=== PATIENT | female | born 1960 | race Caucasian/White ===

== ENCOUNTER 2020-10-07 18:16 | Emergency (ER) | payer MEDICARE, MEDICAID, SELFPAY ==
--- NOTE | 2020-10-07 18:35 | ED.GENADUL_ITS ---
Discharge Plan Disposition Patient Disposition: HOME Condition: Stable Discharge Details Clinical Impression: Back pain, Urinary incontinence Primary Care Provider: Arslan Cruz ED Provider: Cami Parsons Home Meds and New Rx's Prescriptions: Continued Gelina RF: 0 lamotrigine 25 mg Tablet RF: 0 duloxetine 20 mg Capsule, Delayed Rel Sprinkle 20 mg PO BID RF: 0 gabapentin 300 mg Tablet 300 mg PO DAILY RF: 0 atorvastatin [Lipitor] 20 mg Tablet 20 mg RF: 0 Discharge Instructions Instructions: Back Pain (ED) Additional Instructions: Your labs, imaging and exam are reassuring here today. Please encouraged rest, stretching, physical therapy exercises, heat or ice. You may try topical options such as Lidoderm patches. May continue with Tylenol as needed for discomfort. Please continue with your gabapentin. Please call your neurology team on Saturday to schedule follow-up appointment. They are expecting your call. If you develop fever/chills, increased pain, weakness or other new/worsening symptoms please seek care urgently once again. Referrals: Arslan Cruz [Primary Care Provider] - Jaylon Sunshine [ NON-[facility] STAFF PHYSICIAN] - Medical Decision Making Patient is a pleasant 60-year-old female with past medical history pertinent for relapsing remitting multiple sclerosis presenting today with chief complaint of low back pain. Patient reports that she has chronic upper and lower back pain. She associates this with her MS as well as known degenerative disc disease. Reports that she did have increased sciatica pain. The began yesterday. States that she did experience a jolt of pain after which she was incontinent of urine. She denies any incontinent baseline. No change in bowel habits. Since that time, she states that she is having difficulty getting to the restroom in a timely manner and has been having small amounts of urine leak out. States that when she is voiding is a large amount. Denies any trauma. No recent change in medications. States she been taking gabapentin without relief of her discomfort. Denies any fevers or chills. States that her sciatica pain has been worse historically but that the incontinence is new for her. Has not had any difficulty with ambulation. Prior to arrival here, patient was evaluated at local urgent care. The provider there did contact us. She was advised to go there for evaluation potential UTI. Per their report there is no abnormalities on urinalysis. However, with the incontinence and low back pain they were concerned for potential cauda equina and advised that she be evaluated here. On exam, patient appears nontoxic. She does appear anxious and uncomfortable. No neurologic deficit was noted on exam. Patient does have good rectal tone and rectal sensation. She has 2+ distal pulses in all extremities. She has intact reflexes equal bilaterally. Babinski normal bilaterally. She does have midline lumbar wall pain with palpation slightly diffusely about the lumbar back. No rash abnormality is appreciated on exam. No step-off. No evidence of trauma. Patient also exquisitely tender in the midline of the lower abdomen. No pulsatile masses appreciated. States the abdominal pain began around the same time as the back pain. Was not aware initially linking the 2. Differential at this time is quite broad. But her exam is reassuring, cauda equina is on the differential. However, more concern at this time for other pathologies such as AAA based on the patient's abdominal pain radiating to the back. Also considered other pathologies such as diverticulitis, pancreatitis, appendicitis, acute cystitis. She does not have risk factors for spinal infection. May also be MS flair, muscular vs. other. Plan to obtain baseline labs and CTA of the abdomen and pelvis as well as recons of the spine. Patient does not like using narcotics. We will give her IV acetaminophen to help with discomfort. Patient is followed at [facility] for her MS. Last had imaging completed on 10/24/2019. At that time, MRI showed no enhancing lesions in the brain or cervical cord. Similar appearance of the nonenhancing plaques of the muscle sclerosis in the brain. Possible new small lesion in the cervical cord 7. Resolution of enhancement and edema of cord dorsal cord lesion C5-6. The patient also had MRI of thoracic spine dated 09/09/2017. At that time several thoracic cord lesions consistent with demyelination. There is no abnormal enhancement. There was noted to be a small disc herniation at T1-2 to mildly indenting the ventral thecal sac. I am unable to find any imaging of the patient's lumbar spine. Labs reviewed. No sigfnciant abnormality. FINDINGS: Lungs: There is a right lower lobe lung nodule measuring up to 1 cm series 5, image 3 and series 9, image 40. Aorta: No aortic aneurysm. No aortic dissection. Celiac trunk and mesenteric arteries: No occlusion or significant stenosis. Renal arteries: No occlusion or significant stenosis. Right iliac arteries: No occlusion or significant stenosis. Left iliac arteries: No occlusion or significant stenosis. Liver: No mass. Gallbladder and bile ducts: Gallbladder partially contracted. Pancreas: Unremarkable. No mass. No ductal dilation. Spleen: Heterogeneous splenic enhancement noted, presumed artifact of dynamic bolus. Adrenal glands: Unremarkable. No mass. Kidneys and ureters: Unremarkable. No solid mass. No hydronephrosis. Stomach and bowel: Moderate fecal retention pattern. Appendix: No evidence of appendicitis. Intraperitoneal space: Unremarkable. No free air. No significant fluid collection. Lymph nodes: Unremarkable. No enlarged lymph nodes. Urinary bladder: Unremarkable. No mass. Reproductive: Unremarkable as visualized. Bones/joints: No acute fracture. No dislocation. Soft tissues: Unremarkable. IMPRESSION: 1. Follow-up pulmonary nodule. 2. No acute abnormality seen to account for symptoms. FINDINGS: Vertebrae: No acute fracture. Normal alignment. Discs/Spinal canal/Neural foramina: There is mild broad-based disc bulge at the L1-L2 and L2-L3 level. At the L2-L3 level there is bilateral foraminal narrowing, mild to moderate. There is broad-based disc bulge at L3-L4 with bilateral mild foraminal narrowing. Mild disc bulge noted L4-L5 with minimal bilateral foraminal compromise, left worse than right. Soft tissues: Unremarkable. IMPRESSION: Mild spondylosis with foraminal compromise. No evidence for stenosis. Patient appears more comfortable after Tylenol. She states her uper back pain, which is chronic, is worse. Will give Lidoderm patch. Patient urinated after CT, post void residual 58cc. Plan to consult with [facility] neurology to discuss case further. Dr. Santana with neurology. We discussed exam. She did not feel that further evaluation for cauda equina is needed at this time with the patients current exam and imaging. She felt that f/u in the clinic would be approrpiate. I discussed these recommendations with the patient. She is feeling significantly better after Lidoderm patch. Patient in agreement with follow-up with neurology next week. She will continue with physical therapy ludivina mmendations. Gentle stretching. We discussed [id number] and home remedies to help with symptomatic management. Return precautions were discussed. Advised f/u with PCP as well. All the questions and concerns were addressed and he is agreement this plan. HPI General Mode of arrival: ambulatory . Date/Time Provider Initiated Documentation: 10/07/20 18:35 . Limitations to Documentation: no limitations . Information obtained by: patient, RN/MD (contacted by urgent care PA prior to patients arrival), RN notes reviewed and old records reviewed ([facility] record) . History of Present Illness 60 year old F presents to the emergency department with the chief complaint of back pain, described as severe, with intensity rated at 8. Quality is described as aching, and is localized to the back. Patient reports no radiation. Patient started experiencing this day(s) and it has been constant. Immobilization improves symptom(s), Movement worsens symptoms . Patient notes other (urinary incontinence); denies chest pain, cough, fever/chills, loss of appetite, nausea/vomiting, rash, shortness of breath and weakness. Patient did receive the following treatments prior to arrival, none Related Data Home Medications Medication Instructions Recorded Confirmed Gelina 10/07/20 atorvastatin [Lipitor] 20 mg 10/07/20 duloxetine 20 mg PO BID 10/07/20 10/07/20 gabapentin 300 mg PO DAILY 10/07/20 10/07/20 lamotrigine 10/07/20 Allergies Allergy/AdvReac Type Severity Reaction Status Date / Time betamethasone [From Beta-1] Allergy Unverified 10/07/20 19:09 NSAIDS (Non-Steroidal Allergy Unverified 10/07/20 19:08 Anti-Inflamma Review of Systems Constitutional Constitutional: Reports as per HPI, Denies chills, Denies fatigue, Denies fever(s), Denies frequent falls and Denies headache(s) Eyes Eyes: Denies change in vision ENT Ears, Nose, Mouth, and Throat: Denies headache(s) Cardiovascular Cardiovascular: Denies chest pain, Denies dyspnea and Denies dyspnea on exertion Respiratory Respiratory: Denies cough, Denies dyspnea and Denies dyspnea on exertion Gastrointestinal Gastrointestinal: Denies abdominal pain, Denies change in bowel habits and Denies fecal incontinence Genitourinary Genitourinary: Reports as per HPI, Denies dysuria, Reports urinary incontinence, Denies urinary hesitancy and Reports urinary urgency Musculoskeletal Musculoskeletal: Reports as per HPI, Reports back pain, Denies muscle weakness, Denies numbness, Denies radiating pain into limb, Reports stiffness and Denies tingling Integumentary/Breasts Skin/Breast: Reports as per HPI and Denies rash Neurologic Neurologic: Reports as per HPI, Denies frequent falls, Denies headache(s), Denies localized weakness, Denies numbness, Denies radicular pain, Denies sensory deficit, Denies tingling and Denies paresthesias Endocrine Endocrine: Denies fatigue [facility] Social History Smoking/Tobacco Use Status: Never Smoking risk assessment performed?: Yes Alcohol Intake: never Substance use type: marijuana Details: medical card Do you feel safe at home: Yes Do you feel safe in your relationship?: Yes Exam Const General: cooperative, healthy appearing, uncomfortable, no acute distress, well developed and well groomed Nutritional Appearance: average body habitus and well nourished Orientation: alert and awake Eyes General: appearance normal, both eyes and all related structures Neck Neck: normal visual inspection, full ROM, no lymphadenopathy and no meningeal signs Resp Effort & Inspection: normal respiratory effort and able to speak in complete sentences Auscultation: clear to auscultation bilaterally, no rales, no rhonchi and no wheezes Cardio Rate: regular rate Rhythm: regular rhythm Heart Sounds: S1 normal and S2 normal GI Inspection: normal to inspection Palpation: soft, no hepatosplenomegaly, no aortic enlargement, not firm, no guarding, no hernias, no pulsatile masses, not rigid, tender (diffuse) and No ascites Percussion: normal to percussion Auscultation: normal bowel sounds Rectal Exam - female: visual inspection normal and normal sphincter tone Back/Spine/Pelvis Back: no CVA tenderness Cervical Spine: normal cervical lordosis, cervical ROM normal, No cervical spasm and No cervical spinal tenderness Thoracic/Lumbar Spine: thoracic and lumbar spine normal to inspection, No mass, paraspinal tenderness (lumbar area, diffuse pain), No thoraco-lumbar spasm, No thoracic spinal tenderness and lumbar spinal tenderness (diffuse) Pelvis: no pain with anterior-posterior compression and no pain with lateral compression Sacroiliac joints: bilaterally nontender Skin General skin exam: no rashes or lesions noted Neuro General: patient alert, patient awake and patient oriented x3 Cranial Nerves: CN's II-XI intact bilaterally Cognition: normal cognition Speech: speech normal Gait: normal gait Motor: muscle tone normal throughout, strength 5/5 throughout, no pronator drift, no movement abnormalities noted and no fasciculations Sensory Exam: no sensory deficits noted (no saddle paresthesias) DTR's: Rt Biceps: 2+, Lt Biceps: 2+, Rt Brachioradialis: 2+, Lt Brachioradialis: 2+, Rt Patellar: 2+, Lt Patellar: 2+, Rt Ankle: 2+ and Lt Ankle: 2+ Plantar Reflexes: Downgoing: bilateral Coordination: [id number] test normal and [id number] test normal Extrem General: normal to inspection, full ROM, capillary refill normal, no joint enlargement, no pedal edema, no calf tenderness and normal gait Psych Appearance: grossly normal and well kempt Mental Status: mental status grossly normal Speech and Movement: speech and movement normal
[2020-10-07 18:44] VITALS: BP 154/66; PULSE 82; RESP 16; TEMP 36.6; O2SAT 99
--- NOTE | 2020-10-07 19:00 | DI.CT_ITS ---
Exam(s) CT ABDOMEN PELVIS CTA EXAM: CT ABDOMEN PELVIS CTA CLINICAL HISTORY: diffuse pain, maximally centrally, radiating to ba. TECHNIQUE: Imaging Protocol: Axial CT angiography was performed with multi-slice acquisition and m ulti-planar and/or 3D reconstructions. CONTRAST MATERIAL: Intravenous: Omnipaque 350 Contrast volume:100 mL Oral: No COMPARISON: No exams were available for comparison FINDINGS: ABDOMEN AND PELVIS: Abdomen: Celiac axis/mesenteric arteries: No evidence of occlusion or significant stenosis. Renal Arteries: No evidence of occlusion or significant stenosis. There is a single renal artery per fusing each kidney. Aorta: No evidence of occlusion or significant stenosis. No aneurysm or dissection. Pelvis: Iliac Arteries: No evidence of occlusion or significant stenosis. Common Femoral Arteries: No evidence of occlusion or significant stenosis. ABDOMEN: Lung bases: There is a 1.2 x 1.1 cm soft tissue mass in the anterior aspect of the right lower lobe. Dependent atelectasis is seen in the lung bases. Liver: Normal density. No enhancing masses are appreciated. Portal, Superior Mesenteric, and Splenic Veins: Unremarkable. Gallbladder and Biliary Tract: No radiodense calculus or dilation. Pancreas: Normal density, no abnormal calcifications or inflammatory process. Spleen: Normal. Adrenals: No masses seen. Kidneys: Normal size, contour and axis. No radiodense stones or obstructive uropathy. No masses seen. Bowel: No obstruction or bowel wall thickening. No evidence of appendicitis. Peritoneal Cavity: No ascites, collection or mesenteric inflammatory response. No free air. Lymph Nodes: Within normal limits. Bones: Within normal limits for the patient's age. Soft Tissues: Unremarkable. PELVIS: Bladder: Symmetric distention, no gross wall thickening. Reproductive Organs: Unremarkable as visualized. Lymph Nodes: Within normal limits. Bones: Within normal limits. IMPRESSION: 1. Normal CT Angiogram of the abdomen and pelvis. 2. 1.2 x 1.1 cm right lower lobe pulmonary nodule. Pulmonary neoplasm should be considered. A follo w-up CT scan of the chest with contrast is recommended for further evaluation. Incidental Findings RADIATION DOSE DELIVERED: Total DLP Total DLP DATA REPOSITORY: All CT scans at this facility are submitted to the National Radiology Data Registry (NRDR) Dose Index Registry (DIR) with the [employer] ([employer]). RADIATION OPTIMIZATION: All CT scans at this facility use at least one of these dose optimization te chniques: automated exposure control; mA and/or kV adjustment per patient size (includes targeted exa ms where dose is matched to clinical indication); or iterative reconstruction.
[2020-10-07 19:27] LABS: Lactate 0.9 mmol/L (0.6-1.4)
[2020-10-07 19:28] LABS: Abs Immature Grans 0.03 10^3/uL (0.0-0.06); Absolute Basophil Count 0.01 10^3/uL (0.0-0.2); Absolute Eosinophil Count 0.09 10^3/uL (0.0-0.7); Absolute Lymphocyte Count 0.21 10^3/uL (1.2-3.4); Absolute Monocyte Count 0.57 10^3/uL (0.1-0.8); Absolute Neutrophil Count 5.61 10^3/uL (1.2-6.7); Basophils % 0.2; Eosinophils % 1.4; HCT 38.1 % (36.0-46.0); HGB 12.6 g/dL (11.2-15.7); Immature Grans % 0.5; Lymphocytes % 3.2; MCHC 33.1 % (32.0-36.0); MCV 93.8 fL (80-95); MPV 9.9 fL (8.0-11.0); Monocytes % 8.7; Nucleated RBC 0 %; Platelet Count 209 10^3/uL (130-400); RBC 4.06 10^6/uL (3.93-5.22); RDW 13.1 % (11.7-14.6); RDW-SD 45.4 fL; WBC 6.52 10^3/uL (4.4-10.8)
[2020-10-07 19:46] LABS: ALT 31 U/L (14-59); AST 19 U/L (15-37); Albumin 3.6 g/dL (3.4-5.0); Alkaline Phosphatase 90 U/L (46-116); Anion Gap 6.8 mmol/L (3-11); BUN 14 mg/dL (7-18); Bilirubin, Total 0.2 mg/dL (0.2-1.0); CO2 30.2 mmol/L (21.0-32.0); CREATININE 0.7 mg/dL (0.55-1.02); Calcium 8.8 mg/dL (8.5-10.1); Chloride 106 mmol/L (98-107); Glucose 97 mg/dL (74-106); Lipase 127 U/L (73-393); Magnesium 2.1 mg/dL (1.8-2.4); Sodium 143 mmol/L (136-145); Total Protein 6.8 g/dL (6.4-8.2)
[2020-10-07] MEDS: ACETAMINOPHEN 1,000 MG/100 ML BTL 400 MG IVPB (19:46)
[2020-10-07 19:47] LABS: Troponin I < 0.05 ng/mL (<0.06)
[2020-10-07] MEDS: Lactated Ringers 1,000 ML 1000 ML IV (20:00)
[2020-10-07] MEDS: Omnipaque 350 MG/ML 100 ML BTL IJ (20:11)
[2020-10-07] MEDS: Normal Saline - Diluent 50 ML VIAL IV (20:12)
--- NOTE | 2020-10-07 20:30 | DI.CT_ITS ---
Exam(s) CT LUMBAR SPINE RECONS EXAM: CT LUMBAR SPINE RECONS CLINICAL HISTORY: recon for back pain with urinary incontinence. TECHNIQUE: Imaging Protocol: Axial computed tomography images with coronal and sagittal reformatted images were created and reviewed COMPARISON: No exams were available for comparison FINDINGS: There are degenerative changes throughout the lumbar spine. There is disc space narrowing and vacuum disc at L5-S1. Endplate osteophytes are present throughout the lumbar spine. There are mild diffus e disc bulges throughout the lumbar spine. There is sparing of the L5-S1 disc space. Degenerative c hanges of the facets are seen at L4-5 and L5-S1. Neural foraminal narrowing is seen bilaterally at L 2-3 through L5-S1. No significant central spinal canal stenosis is seen in the lumbar spine. No acu te fracture or subluxation. IMPRESSION: Multilevel degenerative changes in the lumbar spine. RADIATION DOSE DELIVERED: Total DLP Total DLP DATA REPOSITORY: All CT scans at this facility are submitted to the National Radiology Data Registry (NRDR) Dose Index Registry (DIR) with the [employer] ([employer]). RADIATION OPTIMIZATION: All CT scans at this facility use at least one of these dose optimization te chniques: automated exposure control; mA and/or kV adjustment per patient size (includes targeted exa ms where dose is matched to clinical indication); or iterative reconstruction.
--- NOTE | 2020-10-07 20:43 | DI.VRAD_ITS ---
PROCEDURE INFORMATION: Exam: CT Lumbar Spine With Contrast Exam date and time: 10/07/2020 7:10 PM Age: 60 years old Clinical indication: Patient HX: Urinary incontinence, low back pain, HX of ms; Additional info: These are reconstructions from the cta abdomen and pelvis done at 2.0 mm slice thickness TECHNIQUE: Imaging protocol: Computed tomography images of the lumbar spine with intravenous contrast. Radiation optimization: All CT scans at this facility use at least one of these dose optimization techniques: automated exposure control; mA and/or kV adjustment per patient size (includes targeted exams where dose is matched to clinical indication); or iterative reconstruction. COMPARISON: No relevant prior studies available. FINDINGS: Vertebrae: No acute fracture. Normal alignment. Discs/Spinal canal/Neural foramina: There is mild broad-based disc bulge at the L1-L2 and L2-L3 level. At the L2-L3 level there is bilateral foraminal narrowing, mild to moderate. There is broad-based disc bulge at L3-L4 with bilateral mild foraminal narrowing. Mild disc bulge noted L4-L5 with minimal bilateral foraminal compromise, left worse than right. Soft tissues: Unremarkable. IMPRESSION: Mild spondylosis with foraminal compromise. No evidence for stenosis. Dictated and Authenticated by: Chantel Henderson MD. Ordering:KOBY Almanza MD
--- NOTE | 2020-10-07 20:50 | DI.VRAD_ITS ---
PROCEDURE INFORMATION: Exam: CTA Abdomen and Pelvis With Contrast Exam date and time: 10/07/2020 7:09 PM Age: 60 years old Clinical indication: Other: Diffuse pain; Patient HX: Urinary incontinence, HX of ms TECHNIQUE: Imaging protocol: Computed tomographic angiography of the abdomen and pelvis with contrast material. 3D rendering (Not supervised by radiologist): MIP and/or 3D reconstructed images were created by the technologist. Radiation optimization: All CT scans at this facility use at least one of these dose optimization techniques: automated exposure control; mA and/or kV adjustment per patient size (includes targeted exams where dose is matched to clinical indication); or iterative reconstruction. Contrast material: OMNIPAQUE 350; Contrast volume: 100 ml; Contrast route: INTRAVENOUS (IV); COMPARISON: No relevant prior studies available. FINDINGS: Lungs: There is a right lower lobe lung nodule measuring up to 1 cm series 5, image 3 and series 9, image 40. Aorta: No aortic aneurysm. No aortic dissection. Celiac trunk and mesenteric arteries: No occlusion or significant stenosis. Renal arteries: No occlusion or significant stenosis. Right iliac arteries: No occlusion or significant stenosis. Left iliac arteries: No occlusion or significant stenosis. Liver: No mass. Gallbladder and bile ducts: Gallbladder partially contracted. Pancreas: Unremarkable. No mass. No ductal dilation. Spleen: Heterogeneous splenic enhancement noted, presumed artifact of dynamic bolus. Adrenal glands: Unremarkable. No mass. Kidneys and ureters: Unremarkable. No solid mass. No hydronephrosis. Stomach and bowel: Moderate fecal retention pattern. Appendix: No evidence of appendicitis. Intraperitoneal space: Unremarkable. No free air. No significant fluid collection. Lymph nodes: Unremarkable. No enlarged lymph nodes. Urinary bladder: Unremarkable. No mass. Reproductive: Unremarkable as visualized. Bones/joints: No acute fracture. No dislocation. Soft tissues: Unremarkable. IMPRESSION: 1. Follow-up pulmonary nodule. 2. No acute abnormality seen to account for symptoms. Dictated and Authenticated by: Chantel Henderson MD. Ordering:KOBY Almanza MD
[2020-10-07] MEDS: Lidocaine 5% Patch 1 PATCH TP (21:00)
[2020-10-07 21:05] VITALS: BP 120/64; PULSE 63; RESP 15; O2SAT 98
[2020-10-07 21:46] VITALS: BP 145/73; PULSE 67; RESP 15; O2SAT 97
== END 2020-10-07 21:50 | disposition home or self-care (01) ==
LOC: DI 18:25 → ER 18:34
PROVIDERS: Emergency Provider Physician Assistant; PCP Physician Assistant
DX: M54.5 Low back pain (principal); N39.498 Other specified urinary incontinence
CPT/HCPCS: 36415; 80053; 83690; 96361; 96374; 99285; 74174; 83605; 83735; 84484; 85025; 99284; J0131; J3490

== ENCOUNTER 2021-02-06 00:43 | Outpatient (CLI) | payer MEDICARE, MEDICAID, SELFPAY ==
--- NOTE | 2021-02-06 | DI.CT_ITS ---
Exam(s) CT CHEST W EXAM: CT CHEST W CLINICAL HISTORY: F/U INCIDENTAL RLL PULMONARY NODULE FOUND ON 09/2020 CT,R91.1 TECHNIQUE: COMPARISON: CT CT ABDOMEN PELVIS CTA from 10/07/[address] LUMBAR SPINE RECONS from 10/07/[address] LUMBAR SPINE RECONS from 10/07/2020 FINDINGS: CT examination the chest was performed utilizing 70 cc of Omnipaque 350. Images obtained through the upper abdomen show unremarkable appearance of visualized portions liver, spleen, pancreas, adrenals, kidneys. No axillary or supraclavicular adenopathy seen. No mediastinal or hilar adenopathy. No evidence of pulmonary embolic disease. No thoracic aortic aneurysm or dissection. The tracheobronchial tree appears intact. The lungs are predominantly clear. A previously described noncalcified nodular radiodensity of the right lower lobe seen on abdominal CT of October 07 is again noted and measures about 12 x 8 millimeters in diameter, unchanged from prior study. An additional questionable pleural-based nodule may be present at the right lung base anteriorly at the dome diaphr agm measuring up to about 7 millimeters in diameter. No additional significant pulmonary nodule seen . The lack of trolley car overhauler a 4 month interval does not exclude malignancy. Additional evaluation with P ET scan or tissue sampling should be considered, please correlate regarding the patient's smoking his tory or lack there of. IMPRESSION: Indeterminate noncalcified right basilar pulmonary nodule appears grossly unchanged over a 4 month pe riod. Malignancy is not excluded, correlation with PET scan recommended. If tissue sampling is not obtained at this time, close interval follow-up would be recommended. RADIATION DOSE DELIVERED: 593.16mGy.cm Total DLP 14.58mGy CTDIvol RADIATION OPTIMIZATION: All CT scans at this facility use at least one of these dose optimization te chniques: automated exposure control; mA and/or kV adjustment per patient size (includes targeted exa ms where dose is matched to clinical indication); or iterative reconstruction.
[2021-02-06 09:02] LABS: CREATININE 0.8 mg/dL (0.55-1.02)
[2021-02-06] MEDS: Normal Saline - Diluent 50 ML VIAL IV (09:09)
[2021-02-06] MEDS: Omnipaque 350 MG/ML 100 ML BTL 70 ML IJ (09:09)
== END 2021-02-06 01:03 ==
PROVIDERS: PCP Physician Assistant; Visit Provider Physician Assistant
DX: R91.1 Solitary pulmonary nodule (principal); N25.9 Disorder resulting from impaired renal tubular function, unspecified
CPT/HCPCS: 71260; 82565; J3490

== ENCOUNTER 2021-10-06 18:34 | Outpatient (REF) | payer MEDICARE, MEDICAID, SELFPAY ==
[2021-10-08 13:42] LABS: COVID-19 RT-PCR UVMMC Result Negative (Negative)
== END 2021-10-06 18:35 | disposition home or self-care (01) ==
LOC: LBN 18:34
PROVIDERS: PCP Physician Assistant; Visit Provider Physician Assistant Medical
DX: J02.9 Acute pharyngitis, unspecified (principal); Z20.822 Contact with and (suspected) exposure to COVID-19
CPT/HCPCS: U0003; U0005; 87070

== ENCOUNTER 2021-12-19 18:20 | Outpatient (REF) | payer MEDICARE, MEDICAID, SELFPAY ==
[2021-12-19 16:13] LABS: HCT 41.8 % (36.0-46.0); HGB 13.6 g/dL (11.2-15.7); MCH 30.6 pg (27.0-33.0); MCHC 32.5 % (32.0-36.0); MCV 94 fL (80-95); MPV 10.3 fL (8.0-11.0); Platelet Count 265 10^3/uL (130-400); RBC 4.44 10^6/uL (3.93-5.22); RDW 13.9 % (11.7-14.6); RDW-SD 48.7 fL; WBC 6.19 10^3/uL (4.4-10.8)
[2021-12-19 16:23] LABS: Iron 85 ug/dL (50-170)
[2021-12-19 16:38] LABS: Anion Gap 10.7 mmol/L (3-11); BUN 12 mg/dL (7-18); CO2 30.3 mmol/L (21.0-32.0); CREATININE 0.6 mg/dL (0.55-1.02); Calcium 9.2 mg/dL (8.5-10.1); Calculated LDL 139 mg/dL (<100); Chloride 100 mmol/L (98-107); Cholesterol 226 mg/dL (<200); Ferritin 208 ng/mL (8-252); Glucose 99 mg/dL (74-106); HDL Cholesterol 72 mg/dL (40-60); Potassium 4.1 mmol/L (3.5-5.1); Sodium 141 mmol/L (136-145); Triglyceride 79 mg/dL (<150)
== END 2021-12-19 18:21 | disposition home or self-care (01) ==
LOC: NCHCN 18:20
PROVIDERS: PCP Physician Assistant; Visit Provider Physician Assistant
DX: R30.0 Dysuria (principal); I10 Essential (primary) hypertension; R53.83 Other fatigue
CPT/HCPCS: 80048; 80061; 85027; 87077; 82728; 83540; 87086; 87186

== ENCOUNTER 2022-01-03 13:11 | Outpatient (REF) | payer MEDICARE, MEDICAID, SELFPAY ==
[2022-01-03 20:33] LABS: FREE T4 0.73 ng/dL (0.76-1.46); TSH 1.03 uIU/mL (0.36-3.74)
== END 2022-01-03 13:12 | disposition home or self-care (01) ==
LOC: NCHCN 13:11
PROVIDERS: PCP Physician Assistant; Visit Provider Physician Assistant
DX: L65.9 Nonscarring hair loss, unspecified (principal)
CPT/HCPCS: 84439; 84443

== ENCOUNTER → 2022-02-06 02:17 | Outpatient (CLI) | payer MEDICARE, MEDICAID, SELFPAY ==
--- NOTE | 2022-02-06 14:45 | DI.RAD_ITS ---
Exam(s) XR CHEST 2V PA LATERAL EXAM: XR CHEST 2V PA LATERAL CLINICAL HISTORY: History of cryptogenic organizing pneumonia, J84.116 TECHNIQUE: 2D digital imaging was performed of the chest. Two images were obtained. PA and lateral views were obtained. COMPARISON: CT CT CHEST W from 02/06/2021 FINDINGS: MEDIASTINUM: Normal. HEART: Normal. PULMONARY VASCULATURE: Normal. LUNGS: Clear. PLEURAL SPACE: No pleural effusion or pneumothorax. BONE:Within normal limits for the patient's age. OTHER FINDINGS:Normal. IMPRESSION: No acute pulmonary findings. DATA REPOSITORY: RADIATION DOSE DELIVERED:
== END ==
PROVIDERS: PCP Physician Assistant; Visit Provider Physician Assistant
DX: J84.116 Cryptogenic organizing pneumonia (principal)
CPT/HCPCS: 71046

== ENCOUNTER 2022-09-17 16:55 | Outpatient (REF) | payer MEDICARE, MEDICAID, SELFPAY ==
[2022-09-17 15:38] LABS: HCT 40.3 % (36.0-46.0); HGB 13.4 g/dL (11.2-15.7); MCH 30.3 pg (27.0-33.0); MCHC 33.3 % (32.0-36.0); MCV 91 fL (80-95); MPV 9.9 fL (8.0-11.0); Platelet Count 236 10^3/uL (130-400); RBC 4.42 10^6/uL (3.93-5.22); RDW 13.1 % (11.7-14.6); WBC 5.25 10^3/uL (4.4-10.8)
[2022-09-17 16:47] LABS: ALT 20 U/L (14-59); AST 13 U/L (15-37); Albumin 3.9 g/dL (3.4-5.0); Alkaline Phosphatase 76 U/L (46-116); Anion Gap 8.6 mmol/L (3-11); BUN 11 mg/dL (7-18); Bilirubin, Total 0.3 mg/dL (0.2-1.0); CO2 27.4 mmol/L (21.0-32.0); CREATININE 0.6 mg/dL (0.55-1.02); Calcium 9.1 mg/dL (8.5-10.1); Chloride 105 mmol/L (98-107); Glucose 99 mg/dL (74-106); Potassium 4.6 mmol/L (3.5-5.1); Sodium 141 mmol/L (136-145)
== END 2022-09-17 16:56 | disposition home or self-care (01) ==
LOC: NCHCN 16:55
PROVIDERS: PCP Physician Assistant; Visit Provider Physician Assistant
DX: I10 Essential (primary) hypertension (principal)
CPT/HCPCS: 80053; 85027

== ENCOUNTER 2023-07-03 15:17 | Outpatient (REF) | payer MEDICARE, MEDICAID, SELFPAY ==
[2023-07-03 15:19] LABS: HCT 41.6 % (36.0-46.0); HGB 13.5 g/dL (11.2-15.7); MCH 30.1 pg (27.0-33.0); MCHC 32.5 % (32.0-36.0); MCV 93 fL (80-95); MPV 9.9 fL (8.0-11.0); Platelet Count 240 10^3/uL (130-400); RBC 4.49 10^6/uL (3.93-5.22); RDW 13.5 % (11.7-14.6); RDW-SD 45.9 fL; WBC 4.49 10^3/uL (4.4-10.8)
[2023-07-03 15:59] LABS: ALT 24 U/L (14-59); AST 16 U/L (15-37); Albumin 4.1 g/dL (3.4-5.0); Alkaline Phosphatase 89 U/L (46-116); Anion Gap 11.2 mmol/L (3-11); BUN 13 mg/dL (7-18); Bilirubin, Total 0.4 mg/dL (0.2-1.0); CO2 28.8 mmol/L (21.0-32.0); CREATININE 0.7 mg/dL (0.55-1.02); Calcium 9.6 mg/dL (8.5-10.1); Calculated LDL 123 mg/dL (<100); Chloride 104 mmol/L (98-107); Cholesterol 207 mg/dL (<200); Estimated GFR 96.52 (mL/min/1.73m2); Glucose 87 mg/dL (74-106); HDL Cholesterol 71 mg/dL (40-60); Potassium 4.6 mmol/L (3.5-5.1); Sodium 144 mmol/L (136-145); Total Protein 6.9 g/dL (6.4-8.2); Triglyceride 65 mg/dL (<150)
== END 2023-07-03 15:18 | disposition home or self-care (01) ==
LOC: NCHCN 15:17
PROVIDERS: PCP Physician Assistant; Visit Provider Physician Assistant
DX: I10 Essential (primary) hypertension (principal)
CPT/HCPCS: 80053; 80061; 85027

== ENCOUNTER 2024-01-06 13:16 | Outpatient (REF) | payer MEDICARE, MEDICAID, SELFPAY ==
[2024-01-06 19:23] LABS: HGB 14.1 g/dL (11.2-15.7); MCH 30.5 pg (27.0-33.0); MCV 95 fL (80-95); MPV 10.3 fL (8.0-11.0); Platelet Count 218 10^3/uL (130-400); RBC 4.63 10^6/uL (3.93-5.22); RDW 13.5 % (11.7-14.6); RDW-SD 47.5 fL; WBC 5.41 10^3/uL (4.4-10.8)
[2024-01-06 19:33] LABS: Iron 111 ug/dL (50-170)
[2024-01-06 19:34] LABS: ALT 32 U/L (14-59); AST 22 U/L (15-37); Albumin 4.2 g/dL (3.4-5.0); Alkaline Phosphatase 94 U/L (46-116); Anion Gap 9.4 mmol/L (3-11); BUN 12 mg/dL (7-18); Bilirubin, Total 0.54 mg/dL (0.2-1.0); CO2 27.6 mmol/L (21.0-32.0); CREATININE 0.6 mg/dL (0.55-1.02); Calcium 9.1 mg/dL (8.5-10.1); Chloride 103 mmol/L (98-107); Estimated GFR 100.17 (mL/min/1.73m2); Glucose 87 mg/dL (74-106); Potassium 4.7 mmol/L (3.5-5.1); Sodium 140 mmol/L (136-145); TSH (W/Ref FT4) 1.32 uIU/mL (0.36-3.74); Total Protein 7.2 g/dL (6.4-8.2)
== END 2024-01-06 13:17 | disposition home or self-care (01) ==
LOC: NCHCN 13:16
PROVIDERS: PCP Physician Assistant; Visit Provider Physician Assistant
DX: R53.83 Other fatigue (principal)
CPT/HCPCS: 80053; 85027; 83540; 84443

== ENCOUNTER 2024-01-20 09:57 | Outpatient (REF) | payer MEDICARE, MEDICAID, SELFPAY ==
--- NOTE | 2024-01-20 09:40 | PAPFT_PTH ---
PATIENT: Marli Rivero LOC: [facility] U#:[id number] AGE/SX: 63/F ROOM: RE01/20/[address]: Britney Kim DO : 1960 BED: DIS: 01/20/2024 SPEC #: [id number] RECD: 01/20/24 13:23 STATUS: MONICA REQ #: [id number] ELISEO: 01/20/24 09:[address]: Britney Kim DEPT: [facility] Cytology RECD BY: Naomy Jones ENTERED: 01/20/24 13:23 SP TYPE: PAPFT OTHR DR: Arslan Cruz Tissues: 1 - CX/ENDOCX FOR PAP SMEARS Procedures: PAP THIN PREP/UVM Screening HPV DNA PROBE Comments: [id number] (HPV 16 & 18/45)
== END 2024-01-20 09:58 | disposition home or self-care (01) ==
LOC: LBN 09:57
PROVIDERS: PCP Physician Assistant; Visit Provider Obstetrics & Gynecology
DX: Z12.4 Encounter for screening for malignant neoplasm of cervix (principal); Z12.39 Encounter for other screening for malignant neoplasm of breast; Z01.419 Encounter for gynecological examination (general) (routine) without abnormal findings
CPT/HCPCS: 88142; 87624

== ENCOUNTER 2024-02-26 00:50 | Outpatient (CLI) | payer MEDICARE, MEDICAID, SELFPAY ==
--- NOTE | 2024-02-26 10:42 | DI.MAMMO_ITS ---
Exam(s) MAMMO SCREENING EXAM: MAMMO SCREENING CLINICAL HISTORY: screening,Z12.39 TECHNIQUE: Mammograms were interpreted according to the usual protocol including computer analysis w [employer] CAD system, tomosynthesis and C-view imaging. COMPARISON: 2022 FINDINGS: The breasts are composed of scattered fibroglandular densities, Breast Density category B. No suspicious masses or suspicious microcalcifications are seen. No skin thickening or abnormal axillary lymph nodes are seen. There has been no significant change from prior exams. IMPRESSION: BI-RADS Category 1, Negative mammogram Yearly screening mammography is recommended. Breast Density - Category B, scattered fibroglandular densities. A negative radiographic report should not delay biopsy if a dominant or clinically suspicious mass is present. Up to ten percent of cancers are not identified on mammography. A negative report may reinforce clinical impression. Adenosis and dense breasts may obscure an underlying neoplasm. False positive reports average 6 to 10%. Patient will receive a letter notifying them of these results.
== END 2024-02-26 01:10 ==
LOC: DI 00:50
PROVIDERS: PCP Physician Assistant; Visit Provider Obstetrics & Gynecology
DX: Z12.31 Encounter for screening mammogram for malignant neoplasm of breast (principal)
CPT/HCPCS: 77063; 77067

== ENCOUNTER 2024-02-27 10:19 | Outpatient (REF) | payer MEDICARE, MEDICAID, SELFPAY ==
--- NOTE | 2024-02-27 10:00 | ENDO_PTH ---
PATIENT: Marli Rivero LOC: [facility] U#:[id number] AGE/SX: 63/F ROOM: RE02/27/[address]: Britney Kim DO : 1960 BED: DIS: 02/27/2024 SPEC #: [id number] RECD: 02/27/24 11:56 STATUS: SOUWinnie REQ #: [id number] ELISEO: 02/27/24 10:[address]: Britney Kim DEPT: Surgical Specimen RECD BY: Naomy Jones ENTERED: 02/27/24 11:59 SP TYPE: Endo OTHR DR: Arslan Cruz Tissues: 1 - ENDOCERVICAL BX/CURRETTE 2 - CERVICAL BIOPSY Procedures: GROSS AND MICRO LEVEL 4 Comments: [id number]
== END 2024-02-27 10:20 | disposition home or self-care (01) ==
LOC: LBN 10:19
PROVIDERS: PCP Physician Assistant; Visit Provider Obstetrics & Gynecology
DX: R87.610 Atypical squamous cells of undetermined significance on cytologic smear of cervix (ASC-US) (principal); R87.810 Cervical high risk human papillomavirus (HPV) DNA test positive
CPT/HCPCS: 88305

== ENCOUNTER 2024-04-21 15:05 | Outpatient (REF) | payer MEDICARE, MEDICAID, SELFPAY ==
[2024-04-21 18:32] LABS: ALT 91 U/L (14-59); AST 40 U/L (15-37); Albumin 3.7 g/dL (3.4-5.0); Alkaline Phosphatase 262 U/L (46-116); BUN 14 mg/dL (7-18); Bilirubin, Total 0.83 mg/dL (0.2-1.0); CREATININE 0.9 mg/dL (0.55-1.02); Chloride 98 mmol/L (98-107); Estimated GFR 70.95 (mL/min/1.73m2); Glucose 187 mg/dL (74-106); Lipase 93 U/L (<78); Potassium 4.4 mmol/L (3.5-5.1); Sodium 136 mmol/L (136-145); Total Protein 7.2 g/dL (6.4-8.2)
[2024-04-21 18:43] LABS: Calcium 9.5 mg/dL (8.5-10.1)
== END 2024-04-21 15:06 | disposition home or self-care (01) ==
LOC: NCHCN 15:05
PROVIDERS: PCP Physician Assistant; Visit Provider Physician Assistant
DX: C25.0 Malignant neoplasm of head of pancreas (principal)
CPT/HCPCS: 80053; 83690

== ENCOUNTER 2024-05-07 16:45 | Outpatient (CLI) | payer MEDICARE, MEDICAID, SELFPAY ==
[2024-05-07 16:57] LABS: Abs Immature Grans 0.01 10^3/uL (0.0-0.06); Absolute Basophil Count 0.02 10^3/uL (0.0-0.2); Absolute Eosinophil Count 0.06 10^3/uL (0.0-0.7); Absolute Lymphocyte Count 0.77 10^3/uL (1.2-3.4); Absolute Monocyte Count 0.48 10^3/uL (0.1-0.8); Absolute Neutrophil Count 3.67 10^3/uL (1.2-6.7); Basophils % 0.4 %; Eosinophils % 1.2 %; HCT 37.9 % (36.0-46.0); HGB 12.3 g/dL (11.2-15.7); Immature Grans % 0.2 %; Lymphocytes % 15.4 %; MCH 30.2 pg (27.0-33.0); MCHC 32.5 % (32.0-36.0); MCV 93 fL (80-95); MPV 9.3 fL (8.0-11.0); Monocytes % 9.6 %; Neutrophils % 73.2 %; Platelet Count 178 10^3/uL (130-400); RBC 4.07 10^6/uL (3.93-5.22); RDW 12.4 % (11.7-14.6); RDW-SD 42.5 fL; WBC 5.01 10^3/uL (4.4-10.8)
[2024-05-07 17:13] LABS: ALT 26 U/L (14-59); AST 16 U/L (15-37); Albumin 3.3 g/dL (3.4-5.0); Alkaline Phosphatase 94 U/L (46-116); Anion Gap 4.1 mmol/L (3-11); BUN 10 mg/dL (7-18); Bilirubin, Total 0.34 mg/dL (0.2-1.0); CO2 33.9 mmol/L (21.0-32.0); CREATININE 0.5 mg/dL (0.55-1.02); Calcium 8.9 mg/dL (8.5-10.1); Chloride 105 mmol/L (98-107); Estimated GFR 104.02 (mL/min/1.73m2); Glucose 100 mg/dL (74-106); Potassium 4.5 mmol/L (3.5-5.1); Sodium 143 mmol/L (136-145); Total Protein 6.6 g/dL (6.4-8.2)
[2024-05-08 19:06] LABS: CA 19-9 30 U/mL (<35)
[2024-05-13 11:57] LABS: DPYD Phenotype Normal metabolizer
== END 2024-05-07 16:46 | disposition home or self-care (01) ==
LOC: LBO 16:46
PROVIDERS: PCP Physician Assistant; Visit Provider Internal Medicine Hematology & Oncology
DX: C25.0 Malignant neoplasm of head of pancreas (principal)
CPT/HCPCS: 36415; 80053; 81232; 81350; 85025; 86301

== ENCOUNTER 2024-05-21 10:35 | Outpatient (REF) | payer MEDICARE, MEDICAID, SELFPAY ==
[2024-05-21 10:40] LABS: Abs Immature Grans 0.02 10^3/uL (0.0-0.06); Absolute Basophil Count 0.03 10^3/uL (0.0-0.2); Absolute Eosinophil Count 0.08 10^3/uL (0.0-0.7); Absolute Lymphocyte Count 0.64 10^3/uL (1.2-3.4); Absolute Monocyte Count 0.45 10^3/uL (0.1-0.8); Absolute Neutrophil Count 4.55 10^3/uL (1.2-6.7); Basophils % 0.5 %; Eosinophils % 1.4 %; HCT 37.7 % (36.0-46.0); HGB 12.1 g/dL (11.2-15.7); Immature Grans % 0.3 %; Lymphocytes % 11.1 %; MCH 30.3 pg (27.0-33.0); MCHC 32.1 % (32.0-36.0); MCV 94 fL (80-95); MPV 9.8 fL (8.0-11.0); Monocytes % 7.8 %; Neutrophils % 78.9 %; Platelet Count 237 10^3/uL (130-400); RDW 13.4 % (11.7-14.6); RDW-SD 46.2 fL; WBC 5.77 10^3/uL (4.4-10.8)
[2024-05-21 10:55] LABS: ALT 19 U/L (14-59); AST 13 U/L (15-37); Albumin 3.6 g/dL (3.4-5.0); Alkaline Phosphatase 86 U/L (46-116); BUN 15 mg/dL (7-18); Bilirubin, Total 0.34 mg/dL (0.2-1.0); CREATININE 0.6 mg/dL (0.55-1.02); Calcium 9.1 mg/dL (8.5-10.1); Chloride 107 mmol/L (98-107); Estimated GFR 99.55 (mL/min/1.73m2); Glucose 128 mg/dL (74-106); Sodium 143 mmol/L (136-145); Total Protein 6.9 g/dL (6.4-8.2)
== END 2024-05-21 10:36 | disposition home or self-care (01) ==
LOC: LBN 10:35
PROVIDERS: PCP Physician Assistant; Visit Provider Internal Medicine Hematology & Oncology
DX: C25.0 Malignant neoplasm of head of pancreas (principal)
CPT/HCPCS: 80053; 85025

== ENCOUNTER 2024-05-24 00:34 | Outpatient (RCR) | payer MEDICARE, MEDICAID, SELFPAY ==
[2024-05-23] MEDS: Normal Saline Flush 10 ML SYR IVP (14:55)
[2024-05-23 15:52] VITALS: BP 128/77; PULSE 72; RESP 16; TEMP 36.6; O2SAT 98
== END 2024-05-29 23:59 | disposition home or self-care (01) ==
LOC: INF 00:34
PROVIDERS: PCP Physician Assistant; Visit Provider Internal Medicine Hematology & Oncology
DX: Z45.2 Encounter for adjustment and management of vascular access device (principal)
CPT/HCPCS: 96523

== ENCOUNTER 2024-06-20 00:04 | Outpatient (RCR) | payer MEDICARE, MEDICAID, SELFPAY ==
[2024-06-04] MEDS: Normal Saline Flush 10 ML SYR IVP (07:53)
[2024-06-04 08:11] LABS: Abs Immature Grans 0.01 10^3/uL (0.0-0.06); Absolute Basophil Count 0.03 10^3/uL (0.0-0.2); Absolute Eosinophil Count 0.15 10^3/uL (0.0-0.7); Absolute Lymphocyte Count 0.49 10^3/uL (1.2-3.4); Absolute Monocyte Count 0.41 10^3/uL (0.1-0.8); Absolute Neutrophil Count 3.25 10^3/uL (1.2-6.7); Basophils % 0.7 %; Eosinophils % 3.5 %; HCT 35.3 % (36.0-46.0); HGB 11.8 g/dL (11.2-15.7); Immature Grans % 0.2 %; Lymphocytes % 11.3 %; MCH 30.7 pg (27.0-33.0); MCHC 33.4 % (32.0-36.0); MCV 92 fL (80-95); MPV 9.6 fL (8.0-11.0); Monocytes % 9.4 %; Neutrophils % 74.9 %; Platelet Count 168 10^3/uL (130-400); RBC 3.84 10^6/uL (3.93-5.22); RDW 13.7 % (11.7-14.6); RDW-SD 46.3 fL; WBC 4.34 10^3/uL (4.4-10.8)
[2024-06-04 08:31] LABS: ALT 46 U/L (14-59); AST 25 U/L (15-37); Albumin 3.2 g/dL (3.4-5.0); Alkaline Phosphatase 77 U/L (46-116); Anion Gap 6.8 mmol/L (3-11); BUN 4 mg/dL (7-18); Bilirubin, Total 0.25 mg/dL (0.2-1.0); CO2 29.2 mmol/L (21.0-32.0); CREATININE 0.7 mg/dL (0.55-1.02); Calcium 8.8 mg/dL (8.5-10.1); Chloride 107 mmol/L (98-107); Estimated GFR 95.92 (mL/min/1.73m2); Glucose 161 mg/dL (74-106); Potassium 3.7 mmol/L (3.5-5.1); Sodium 143 mmol/L (136-145); Total Protein 6.3 g/dL (6.4-8.2)
[2024-06-05 10:14] LABS: CA 19-9 27 U/mL (<35)
[2024-06-06] MEDS: Normal Saline Flush 10 ML SYR IVP (12:04)
[2024-06-18] MEDS: Normal Saline Flush 10 ML SYR IVP (07:40)
[2024-06-18 07:50] LABS: Abs Immature Grans 0.01 10^3/uL (0.0-0.06); Absolute Basophil Count 0.02 10^3/uL (0.0-0.2); Absolute Eosinophil Count 0.13 10^3/uL (0.0-0.7); Absolute Lymphocyte Count 0.66 10^3/uL (1.2-3.4); Absolute Monocyte Count 0.46 10^3/uL (0.1-0.8); Basophils % 0.4 %; Eosinophils % 2.8 %; HCT 35.1 % (36.0-46.0); HGB 11.7 g/dL (11.2-15.7); Immature Grans % 0.2 %; Lymphocytes % 14.4 %; MCHC 33.3 % (32.0-36.0); MCV 93 fL (80-95); MPV 9.3 fL (8.0-11.0); Neutrophils % 72.2 %; Platelet Count 135 10^3/uL (130-400); RBC 3.78 10^6/uL (3.93-5.22); RDW 14.1 % (11.7-14.6); RDW-SD 47.8 fL; WBC 4.58 10^3/uL (4.4-10.8)
[2024-06-18 08:08] LABS: ALT 37 U/L (14-59); AST 19 U/L (15-37); Albumin 2.9 g/dL (3.4-5.0); Alkaline Phosphatase 85 U/L (46-116); Anion Gap 4.9 mmol/L (3-11); BUN 9 mg/dL (7-18); Bilirubin, Total 0.24 mg/dL (0.2-1.0); CO2 29.1 mmol/L (21.0-32.0); CREATININE 0.6 mg/dL (0.55-1.02); Calcium 8.5 mg/dL (8.5-10.1); Chloride 109 mmol/L (98-107); Estimated GFR 99.55 (mL/min/1.73m2); Glucose 126 mg/dL (74-106); Sodium 143 mmol/L (136-145); Total Protein 6.1 g/dL (6.4-8.2)
[2024-06-19 09:50] LABS: CA 19-9 27 U/mL (<35)
[2024-06-20] MEDS: Normal Saline Flush 10 ML SYR IVP ×2 (11:13→11:14)
== END 2024-06-26 23:59 | disposition home or self-care (01) ==
LOC: INF 00:04
PROVIDERS: PCP Physician Assistant; Visit Provider Internal Medicine Hematology & Oncology
DX: C25.0 Malignant neoplasm of head of pancreas (principal)
CPT/HCPCS: 36591; 80053; 96523; 85025; 86301

== ENCOUNTER 2024-07-07 01:30 | Outpatient (CLI) | payer MEDICARE, MEDICAID, SELFPAY ==
--- NOTE | 2024-07-07 | DI.CT_ITS ---
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 Lung Computer Aided Detection (CAD) was utilized. CONTRAST MATERIAL: Intravenous: Omnipaque 350 contrast volume:75 mL Oral: Yes COMPARISON: CT CT ABDOMEN PELVIS CTA from 10/07/[address] ABDOMEN W/WO CONTRAST from 04/09/2024 FINDINGS: CHEST: Tracheobronchial tree: Patent where visualized. No evidence of bronchiectasis. Pulmonary parenchyma: No consolidation or dominant measurable mass. No architectural distortion. Visualized thyroid gland: Unremarkable. Mediastinum and Brionna: No dominant adenopathy or fluid collection. The esophagus is unremarkable. Pleura: No effusion or pneumothorax. Heart: The heart is not dilated. No coronary artery calcifications are seen. No pericardial effusion. Pulmonary arteries: No pulmonary emboli are identified. Aorta: Thoracic aorta non-dilated. There is no evidence of dissection. Mild atherosclerotic calcifica tion is present. Lymph nodes: Within normal limits. Tubes, Catheters, and Lines: The patient has a right sided port. Soft tissues: Unremarkable. Bones:Within normal limits for the patient's age. ABDOMEN: Liver: Normal density. No measurable mass. Portal, Superior Mesenteric, and Splenic Veins: Unremarkable. Gallbladder and Biliary Tract: There is a biliary stent in place. There is resultant pneumobilia. T he gallbladder is contracted but otherwise unremarkable. There is no biliary ductal dilatation. Pancreas: The mass in the head of the pancreas has shown some decrease in size. It measures 2 x 1.6 cm (series 22, image 71). There is atrophy of the body and tail of the pancreas with dilatation of t he pancreatic duct noted. This is not significantly progressed compared to the prior examination. Spleen: Normal. Adrenals: No masses seen. Kidneys: Normal size, contour and axis. No radiodense stones or obstructive uropathy. No masses seen. Abdominal Aorta: Abdominal portion non-dilated. Atherosclerotic calcification is present. Bowel: No obstruction or bowel wall thickening. No evidence of appendicitis. Peritoneal Cavity: No ascites, collection or mesenteric inflammatory response. No free air. Lymph Nodes: Within normal limits. Bones: Within normal limits for the patient's age. No aggressive osseous lesions are present. Soft Tissues: Unremarkable. PELVIS: Bladder: There is mild diffuse thickening of the wall of the urinary bladder. This is likely due to underdistention. Cystitis cannot be entirely excluded. Please correlate clinically. Reproductive Organs: Unremarkable as visualized. Lymph Nodes: Within normal limits. Bones: Within normal limits. IMPRESSION: 1. Apparent decrease in size of the pancreatic head mass which now measures 2 x 1.6 cm. 2. Interval placement of a biliary stent with resultant pneumobilia. Mild diffuse thickening of the w all of the urinary bladder. This is likely due to underdistention. Cystitis cannot be entirely exclud ed. Please correlate clinically. 3. No evidence of thoracic metastatic disease. RADIATION DOSE DELIVERED: 701.34mGy.cm Total DLP DATA REPOSITORY: All CT scans at this facility are submitted to the National Radiology Data Registry (NRDR) Dose Index Registry (DIR) with the [employer] ([employer]). RADIATION OPTIMIZATION: All CT scans at this facility use at least one of these dose optimization te chniques: automated exposure control; mA and/or kV adjustment per patient size (includes targeted exa ms where dose is matched to clinical indication); or iterative reconstruction.
[2024-07-07] MEDS: Barium Sulfate 2% W/V-Creamy Vanilla Smoothie 450 ML BTL PO ×2 (07:49→07:50)
[2024-07-07] MEDS: Normal Saline - Diluent 50 ML VIAL IJ (10:06)
[2024-07-07] MEDS: Omnipaque 350 MG/ML 100 ML BTL 75 ML IJ (10:07)
== END 2024-07-07 01:50 ==
PROVIDERS: PCP Physician Assistant; Visit Provider Internal Medicine Hematology & Oncology
DX: C25.0 Malignant neoplasm of head of pancreas (principal)
CPT/HCPCS: 36591; 74177; 80053; 71260; 85025; 86301; J3490

== ENCOUNTER 2024-07-16 01:27 | Outpatient (RCR) | payer MEDICARE, SELFPAY ==
[2024-07-02] MEDS: Normal Saline Flush 10 ML SYR IVP (07:34)
[2024-07-02 07:57] LABS: Abs Immature Grans 0.01 10^3/uL (0.0-0.06); Absolute Basophil Count 0.01 10^3/uL (0.0-0.2); Absolute Lymphocyte Count 0.45 10^3/uL (1.2-3.4); Absolute Monocyte Count 0.33 10^3/uL (0.1-0.8); Absolute Neutrophil Count 2.69 10^3/uL (1.2-6.7); Basophils % 0.3 %; Eosinophils % 2.8 %; HCT 33.5 % (36.0-46.0); HGB 11.1 g/dL (11.2-15.7); Immature Grans % 0.3 %; Lymphocytes % 12.5 %; MCH 30.7 pg (27.0-33.0); MCHC 33.1 % (32.0-36.0); MCV 93 fL (80-95); MPV 9.6 fL (8.0-11.0); Monocytes % 9.2 %; Neutrophils % 74.9 %; Platelet Count 117 10^3/uL (130-400); RBC 3.61 10^6/uL (3.93-5.22); RDW-SD 50.5 fL; WBC 3.59 10^3/uL (4.4-10.8)
[2024-07-02 08:15] LABS: ALT 31 U/L (14-59); AST 19 U/L (15-37); Alkaline Phosphatase 82 U/L (46-116); Anion Gap 10.3 mmol/L (3-11); BUN 6 mg/dL (7-18); Bilirubin, Total 0.25 mg/dL (0.2-1.0); CO2 26.7 mmol/L (21.0-32.0); CREATININE 0.6 mg/dL (0.55-1.02); Calcium 8.7 mg/dL (8.5-10.1); Chloride 108 mmol/L (98-107); Estimated GFR 99.55 (mL/min/1.73m2); Glucose 193 mg/dL (74-106); Potassium 3.7 mmol/L (3.5-5.1); Sodium 145 mmol/L (136-145); Total Protein 6.1 g/dL (6.4-8.2)
[2024-07-03 10:12] LABS: CA 19-9 22 U/mL (<35)
[2024-07-04] MEDS: Normal Saline Flush 10 ML SYR IVP (12:07)
[2024-07-07 07:49] LABS: Abs Immature Grans 0.01 10^3/uL (0.0-0.06); Absolute Basophil Count 0.01 10^3/uL (0.0-0.2); Absolute Eosinophil Count 0.14 10^3/uL (0.0-0.7); Absolute Monocyte Count 0.14 10^3/uL (0.1-0.8); Absolute Neutrophil Count 1.54 10^3/uL (1.2-6.7); Basophils % 0.4 %; HCT 35.3 % (36.0-46.0); HGB 11.8 g/dL (11.2-15.7); Immature Grans % 0.4 %; Lymphocytes % 21.4 %; MCH 31.2 pg (27.0-33.0); MCHC 33.4 % (32.0-36.0); MCV 93 fL (80-95); MPV 9.4 fL (8.0-11.0); Neutrophils % 65.8 %; Platelet Count 137 10^3/uL (130-400); RBC 3.78 10^6/uL (3.93-5.22); RDW 14.6 % (11.7-14.6); RDW-SD 50.6 fL; WBC 2.34 10^3/uL (4.4-10.8)
[2024-07-07 08:05] LABS: ALT 33 U/L (14-59); AST 16 U/L (15-37); Albumin 3.2 g/dL (3.4-5.0); Alkaline Phosphatase 93 U/L (46-116); Anion Gap 6.2 mmol/L (3-11); BUN 12 mg/dL (7-18); Bilirubin, Total 0.2 mg/dL (0.2-1.0); CO2 29.8 mmol/L (21.0-32.0); CREATININE 0.6 mg/dL (0.55-1.02); Calcium 8.5 mg/dL (8.5-10.1); Chloride 105 mmol/L (98-107); Estimated GFR 99.55 (mL/min/1.73m2); Glucose 128 mg/dL (74-106); Potassium 4.2 mmol/L (3.5-5.1); Sodium 141 mmol/L (136-145); Total Protein 6.5 g/dL (6.4-8.2)
[2024-07-07] MEDS: Normal Saline Flush 10 ML SYR IVP (08:22)
[2024-07-08 10:32] LABS: CA 19-9 21 U/mL (<35)
[2024-07-16] MEDS: Normal Saline Flush 10 ML SYR IVP (07:45)
[2024-07-16 07:51] LABS: Abs Immature Grans 0.01 10^3/uL (0.0-0.06); Absolute Basophil Count 0.02 10^3/uL (0.0-0.2); Absolute Lymphocyte Count 0.52 10^3/uL (1.2-3.4); Absolute Monocyte Count 0.38 10^3/uL (0.1-0.8); Basophils % 0.7 %; Eosinophils % 3.5 %; HCT 35.4 % (36.0-46.0); HGB 11.6 g/dL (11.2-15.7); Immature Grans % 0.4 %; Lymphocytes % 18.4 %; MCH 31.2 pg (27.0-33.0); MCHC 32.8 % (32.0-36.0); MCV 95 fL (80-95); MPV 9.4 fL (8.0-11.0); Monocytes % 13.4 %; Neutrophils % 63.6 %; Platelet Count 120 10^3/uL (130-400); RBC 3.72 10^6/uL (3.93-5.22); RDW 15.8 % (11.7-14.6); WBC 2.83 10^3/uL (4.4-10.8)
[2024-07-16 08:08] LABS: ALT 26 U/L (14-59); AST 19 U/L (15-37); Albumin 3.1 g/dL (3.4-5.0); Alkaline Phosphatase 90 U/L (46-116); Anion Gap 5.8 mmol/L (3-11); BUN 13 mg/dL (7-18); Bilirubin, Total 0.2 mg/dL (0.2-1.0); CO2 30.2 mmol/L (21.0-32.0); CREATININE 0.6 mg/dL (0.55-1.02); Calcium 8.7 mg/dL (8.5-10.1); Chloride 109 mmol/L (98-107); Estimated GFR 99.55 (mL/min/1.73m2); Glucose 152 mg/dL (74-106); Potassium 3.8 mmol/L (3.5-5.1); Sodium 145 mmol/L (136-145); Total Protein 6.4 g/dL (6.4-8.2)
[2024-07-17 09:40] LABS: CA 19-9 18 U/mL (<35)
[2024-07-18] MEDS: Normal Saline Flush 10 ML SYR IVP (12:00)
== END 2024-07-27 23:59 | disposition home or self-care (01) ==
LOC: INF 01:27
PROVIDERS: PCP Physician Assistant; Visit Provider Internal Medicine Hematology & Oncology
DX: C25.0 Malignant neoplasm of head of pancreas (principal)
CPT/HCPCS: 36591; 80053; 96523; 85025; 86301

== ENCOUNTER 2024-08-22 00:44 | Outpatient (RCR) | payer MEDICARE, SELFPAY ==
[2024-07-30 08:20] LABS: Abs Immature Grans 0.01 10^3/uL (0.0-0.06); Absolute Basophil Count 0.03 10^3/uL (0.0-0.2); Absolute Eosinophil Count 0.08 10^3/uL (0.0-0.7); Absolute Lymphocyte Count 0.45 10^3/uL (1.2-3.4); Absolute Monocyte Count 0.42 10^3/uL (0.1-0.8); Absolute Neutrophil Count 3.25 10^3/uL (1.2-6.7); Basophils % 0.7 %; Eosinophils % 1.9 %; HCT 33.7 % (36.0-46.0); HGB 11.1 g/dL (11.2-15.7); Immature Grans % 0.2 %; Lymphocytes % 10.6 %; MCH 31.2 pg (27.0-33.0); MCHC 32.9 % (32.0-36.0); MCV 95 fL (80-95); MPV 10.3 fL (8.0-11.0); Monocytes % 9.9 %; Neutrophils % 76.7 %; Platelet Count 113 10^3/uL (130-400); RBC 3.56 10^6/uL (3.93-5.22); RDW 15.9 % (11.7-14.6); WBC 4.24 10^3/uL (4.4-10.8)
[2024-07-30 08:39] LABS: ALT 31 U/L (14-59); AST 20 U/L (15-37); Albumin 3.1 g/dL (3.4-5.0); Alkaline Phosphatase 98 U/L (46-116); Anion Gap 12.6 mmol/L (3-11); BUN 8 mg/dL (7-18); Bilirubin, Total 0.2 mg/dL (0.2-1.0); CO2 26.4 mmol/L (21.0-32.0); CREATININE 0.6 mg/dL (0.55-1.02); Calcium 8.6 mg/dL (8.5-10.1); Chloride 105 mmol/L (98-107); Estimated GFR 99.55 (mL/min/1.73m2); Glucose 176 mg/dL (74-106); Sodium 144 mmol/L (136-145); Total Protein 6.3 g/dL (6.4-8.2)
[2024-07-30] MEDS: Normal Saline Flush 10 ML SYR IVP (09:12)
[2024-07-31 09:47] LABS: CA 19-9 10 U/mL (<35)
[2024-08-01] MEDS: Normal Saline Flush 10 ML SYR IVP ×2 (13:10→13:12)
[2024-08-13] MEDS: Normal Saline Flush 10 ML SYR IVP (07:48)
[2024-08-13 07:52] LABS: Abs Immature Grans 0.02 10^3/uL (0.0-0.06); Absolute Basophil Count 0.04 10^3/uL (0.0-0.2); Absolute Eosinophil Count 0.09 10^3/uL (0.0-0.7); Absolute Neutrophil Count 3.21 10^3/uL (1.2-6.7); Basophils % 0.9 %; HCT 35.3 % (36.0-46.0); HGB 11.5 g/dL (11.2-15.7); Immature Grans % 0.4 %; Lymphocytes % 13.2 %; MCH 31.5 pg (27.0-33.0); MCHC 32.6 % (32.0-36.0); MCV 97 fL (80-95); MPV 10.2 fL (8.0-11.0); Monocytes % 13.2 %; Neutrophils % 70.3 %; RBC 3.65 10^6/uL (3.93-5.22); RDW 15.7 % (11.7-14.6); RDW-SD 55.9 fL; WBC 4.56 10^3/uL (4.4-10.8)
[2024-08-13 08:00] LABS: Diff Comment PLT Morph Reviewed; Platelet Count 93 10^3/uL (130-400); RBC Morphology Normal
[2024-08-13 08:07] LABS: ALT 17 U/L (14-59); AST 23 U/L (15-37); Albumin 3.1 g/dL (3.4-5.0); Alkaline Phosphatase 96 U/L (46-116); Anion Gap 7.9 mmol/L (3-11); BUN 9 mg/dL (7-18); Bilirubin, Total 0.2 mg/dL (0.2-1.0); CO2 27.1 mmol/L (21.0-32.0); CREATININE 0.6 mg/dL (0.55-1.02); Calcium 8.7 mg/dL (8.5-10.1); Chloride 107 mmol/L (98-107); Estimated GFR 99.55 (mL/min/1.73m2); Glucose 133 mg/dL (74-106); Potassium 3.8 mmol/L (3.5-5.1); Sodium 142 mmol/L (136-145); Total Protein 6.4 g/dL (6.4-8.2)
[2024-08-14 10:57] LABS: CA 19-9 10 U/mL (<35)
[2024-08-20 07:25] LABS: Abs Immature Grans 0.03 10^3/uL (0.0-0.06); Absolute Basophil Count 0.03 10^3/uL (0.0-0.2); Absolute Eosinophil Count 0.14 10^3/uL (0.0-0.7); Absolute Lymphocyte Count 0.61 10^3/uL (1.2-3.4); Absolute Monocyte Count 0.56 10^3/uL (0.1-0.8); Absolute Neutrophil Count 2.26 10^3/uL (1.2-6.7); Basophils % 0.8 %; Eosinophils % 3.9 %; HGB 11.6 g/dL (11.2-15.7); Immature Grans % 0.8 %; Lymphocytes % 16.8 %; MCH 31.7 pg (27.0-33.0); MCHC 32.2 % (32.0-36.0); MCV 98 fL (80-95); MPV 10.1 fL (8.0-11.0); Monocytes % 15.4 %; Neutrophils % 62.3 %; Platelet Count 129 10^3/uL (130-400); RBC 3.66 10^6/uL (3.93-5.22); RDW 15.9 % (11.7-14.6); WBC 3.63 10^3/uL (4.4-10.8)
[2024-08-20] MEDS: Normal Saline Flush 10 ML SYR IVP (07:31)
[2024-08-20 07:38] LABS: ALT 35 U/L (14-59); AST 26 U/L (15-37); Albumin 3.1 g/dL (3.4-5.0); Alkaline Phosphatase 104 U/L (46-116); Anion Gap 6.3 mmol/L (3-11); BUN 8 mg/dL (7-18); Bilirubin, Total 0.3 mg/dL (0.2-1.0); CO2 29.7 mmol/L (21.0-32.0); CREATININE 0.6 mg/dL (0.55-1.02); Calcium 8.7 mg/dL (8.5-10.1); Chloride 107 mmol/L (98-107); Estimated GFR 99.55 (mL/min/1.73m2); Glucose 130 mg/dL (74-106); Sodium 143 mmol/L (136-145); Total Protein 6.4 g/dL (6.4-8.2)
[2024-08-21 10:24] LABS: CA 19-9 13 U/mL (<35)
[2024-08-22] MEDS: Normal Saline Flush 10 ML SYR IVP (12:00)
== END 2024-08-26 23:59 | disposition home or self-care (01) ==
LOC: INF 00:44
PROVIDERS: PCP Physician Assistant; Visit Provider Internal Medicine Hematology & Oncology
DX: C25.0 Malignant neoplasm of head of pancreas (principal); Z45.2 Encounter for adjustment and management of vascular access device
CPT/HCPCS: 36591; 80053; 96365; 96523; 85025; 86301

== ENCOUNTER 2024-09-05 00:53 | Outpatient (RCR) | payer MEDICARE, SELFPAY ==
[2024-09-03] MEDS: Normal Saline Flush 10 ML SYR IVP (08:47)
[2024-09-03 08:57] LABS: Abs Immature Grans 0.01 10^3/uL (0.0-0.06); Absolute Basophil Count 0.02 10^3/uL (0.0-0.2); Absolute Eosinophil Count 0.09 10^3/uL (0.0-0.7); Absolute Lymphocyte Count 0.55 10^3/uL (1.2-3.4); Absolute Monocyte Count 0.37 10^3/uL (0.1-0.8); Basophils % 0.6 %; Eosinophils % 2.5 %; HCT 34.9 % (36.0-46.0); HGB 11.6 g/dL (11.2-15.7); Immature Grans % 0.3 %; Lymphocytes % 15.2 %; MCH 31.5 pg (27.0-33.0); MCHC 33.2 % (32.0-36.0); MCV 95 fL (80-95); MPV 9.4 fL (8.0-11.0); Monocytes % 10.2 %; Neutrophils % 71.2 %; Platelet Count 106 10^3/uL (130-400); RBC 3.68 10^6/uL (3.93-5.22); RDW 14.6 % (11.7-14.6); RDW-SD 50.7 fL; WBC 3.63 10^3/uL (4.4-10.8)
[2024-09-03 09:04] LABS: Absolute Neutrophil Count 2.58 10^3/uL (1.2-6.7)
[2024-09-03 09:20] LABS: ALT 28 U/L (14-59); AST 16 U/L (15-37); Albumin 3.1 g/dL (3.4-5.0); Alkaline Phosphatase 108 U/L (46-116); BUN 11 mg/dL (7-18); Bilirubin, Total 0.2 mg/dL (0.2-1.0); CREATININE 0.6 mg/dL (0.55-1.02); Calcium 8.7 mg/dL (8.5-10.1); Chloride 105 mmol/L (98-107); Estimated GFR 99.55 (mL/min/1.73m2); Glucose 144 mg/dL (74-106); Potassium 3.8 mmol/L (3.5-5.1); Sodium 140 mmol/L (136-145); Total Protein 6.5 g/dL (6.4-8.2)
[2024-09-04 10:11] LABS: CA 19-9 10 U/mL (<35)
[2024-09-05] MEDS: Normal Saline Flush 5 ML SYR IVP (12:53)
== END 2024-09-26 23:59 | disposition home or self-care (01) ==
LOC: INF 00:53
PROVIDERS: PCP Physician Assistant; Visit Provider Internal Medicine Hematology & Oncology
DX: C25.0 Malignant neoplasm of head of pancreas (principal); Z45.2 Encounter for adjustment and management of vascular access device
CPT/HCPCS: 36591; 80053; 96523; 85025; 86301

== ENCOUNTER 2025-01-07 15:20 | Outpatient (REF) | payer MEDICARE, SELFPAY ==
[2025-01-07 15:59] LABS: HCT 33.0 % (36.0-46.0); HGB 10.7 g/dL (11.2-15.7); MCH 30.2 pg (27.0-33.0); MCHC 32.4 % (32.0-36.0); MCV 93 fL (80-95); MPV 10.5 fL (8.0-11.0); Platelet Count 178 10^3/uL (130-400); RBC 3.54 10^6/uL (3.93-5.22); RDW 12.7 % (11.7-14.6); RDW-SD 44.1 fL; WBC 7.10 10^3/uL (4.4-10.8)
[2025-01-07 16:31] LABS: ALT 30 U/L (14-59); AST 28 U/L (15-37); Albumin 3.3 g/dL (3.4-5.0); Alkaline Phosphatase 120 U/L (46-116); Anion Gap 5.5 mmol/L (3-11); BUN 9 mg/dL (7-18); Bilirubin, Total 0.2 mg/dL (0.2-1.0); CO2 30.5 mmol/L (21.0-32.0); Calcium 9.8 mg/dL (8.5-10.1); Chloride 102 mmol/L (98-107); Estimated GFR 99.55 (mL/min/1.73m2); Glucose 199 mg/dL (74-106); Potassium 3.9 mmol/L (3.5-5.1); Sodium 138 mmol/L (136-145); Total Protein 7.0 g/dL (6.4-8.2)
[2025-01-07 20:19] LABS: Hemoglobin A1C 6.5 % (<5.7)
== END 2025-01-07 15:21 | disposition home or self-care (01) ==
LOC: NCHCN 15:20
PROVIDERS: PCP Physician Assistant; Visit Provider Physician Assistant
DX: C25.0 Malignant neoplasm of head of pancreas (principal); R73.9 Hyperglycemia, unspecified
CPT/HCPCS: 80053; 85027; 83036

== ENCOUNTER 2025-01-21 00:46 | Outpatient (RCR) | payer MEDICARE, SELFPAY ==
[2025-01-21] MEDS: Normal Saline Flush 10 ML SYR IVP (10:00)
[2025-01-21 10:56] LABS: Abs Immature Grans 0.01 10^3/uL (0.0-0.06); HCT 30.6 % (36.0-46.0); HGB 9.8 g/dL (11.2-15.7); Immature Grans % 0.2 %; MCH 29.2 pg (27.0-33.0); MCHC 32.0 % (32.0-36.0); MCV 91 fL (80-95); MPV 9.6 fL (8.0-11.0); Platelet Count 129 10^3/uL (130-400); RBC 3.36 10^6/uL (3.93-5.22); RDW 13.1 % (11.7-14.6); RDW-SD 43.2 fL; WBC 4.89 10^3/uL (4.4-10.8)
[2025-01-21 11:13] LABS: ALT 27 U/L (14-59); AST 21 U/L (15-37); Albumin 3.2 g/dL (3.4-5.0); Alkaline Phosphatase 107 U/L (46-116); Anion Gap 6.3 mmol/L (3-11); BUN 15 mg/dL (7-18); Bilirubin, Total 0.3 mg/dL (0.2-1.0); CO2 29.7 mmol/L (21.0-32.0); Calcium 8.9 mg/dL (8.5-10.1); Chloride 103 mmol/L (98-107); Glucose 247 mg/dL (74-106); Potassium 4.1 mmol/L (3.5-5.1); Sodium 139 mmol/L (136-145); Total Protein 6.7 g/dL (6.4-8.2)
[2025-01-22 11:03] LABS: CA 19-9 18 U/mL (<35)
== END 2025-01-26 23:59 | disposition home or self-care (01) ==
LOC: INF 00:46
PROVIDERS: PCP Physician Assistant; Visit Provider Internal Medicine Hematology & Oncology
DX: C25.0 Malignant neoplasm of head of pancreas (principal); Z45.2 Encounter for adjustment and management of vascular access device
CPT/HCPCS: 36591; 80053; 96523; 85025; 86301

== ENCOUNTER 2025-02-18 09:13 | Outpatient (RCR) | payer MEDICARE, SELFPAY ==
[2025-02-18 09:42] LABS: Abs Immature Grans 0.01 10^3/uL (0.0-0.06); HCT 34.4 % (36.0-46.0); HGB 10.9 g/dL (11.2-15.7); Immature Grans % 0.2 %; MCH 28.4 pg (27.0-33.0); MCHC 31.7 % (32.0-36.0); MCV 90 fL (80-95); MPV 10.2 fL (8.0-11.0); Platelet Count 143 10^3/uL (130-400); RBC 3.84 10^6/uL (3.93-5.22); RDW 14.0 % (11.7-14.6); RDW-SD 45.4 fL; WBC 5.92 10^3/uL (4.4-10.8)
[2025-02-18 10:05] LABS: ALT 33 U/L (14-59); AST 25 U/L (15-37); Albumin 3.4 g/dL (3.4-5.0); Alkaline Phosphatase 152 U/L (46-116); Anion Gap 6.8 mmol/L (3-11); BUN 8 mg/dL (7-18); Bilirubin, Total 0.4 mg/dL (0.2-1.0); CO2 30.2 mmol/L (21.0-32.0); Calcium 9.1 mg/dL (8.5-10.1); Chloride 105 mmol/L (98-107); Estimated GFR 104.02 (mL/min/1.73m2); Glucose 152 mg/dL (74-106); Potassium 4.4 mmol/L (3.5-5.1); Sodium 142 mmol/L (136-145); Total Protein 7.0 g/dL (6.4-8.2)
[2025-02-19 09:47] LABS: CA 19-9 6 U/mL (<35)
== END 2025-02-26 23:59 | disposition home or self-care (01) ==
LOC: INF 09:13
PROVIDERS: PCP Physician Assistant; Visit Provider Internal Medicine Hematology & Oncology
DX: C25.0 Malignant neoplasm of head of pancreas (principal)
CPT/HCPCS: 36415; 80053; 85025; 86301